=== PATIENT | male | born 1990 | race Caucasian/White ===

== ENCOUNTER 2018-06-17 13:20 | Emergency (ER) | payer BC ==
[~2018-06-17] VITALS: Ht 180.3 cm; Wt 86.8 kg
[2018-06-17 16:31] VITALS: BP 117/69
== END 2018-06-17 16:37 | disposition home or self-care (01) ==
LOC: EMS 13:22
DX: S13.4XXA Sprain of ligaments of cervical spine, initial encounter (principal); W19.XXXA Unspecified fall, initial encounter; Y93.66 Activity, soccer; Y92.89 Other specified places as the place of occurrence of the external cause; Y99.8 Other external cause status
CPT/HCPCS: 72125